=== PATIENT | male | born 1970 | race Two or more races ===

== ENCOUNTER → 2016-07-15 | Outpatient (CLI) | payer OTHER ==
--- NOTE | 2016-07-15 19:45 | REP ---
LEFT FOOT: REASON: Pain after trauma. COMPARISON: None. FINDINGS: The joint spaces are symmetric and relatively well maintained. There is no evidence of acute fracture or destructive osseous lesion. There is plantar calcaneal heel spur. IMPRESSION: Negative. Signed by Elliott Thomas DO 07/16/2016 12:18 P
== END ==
LOC: M LRY 18:03
PROVIDERS: ATTEND Nurse Practitioner Family
DX: M79.672 Pain in left foot (principal)

== ENCOUNTER → 2018-01-14 | Outpatient (CLI) | payer BC | LOC: M LRY 09:42 | DX: M79.672 Pain in left foot (principal) | CPT/HCPCS: 73630 ==

== ENCOUNTER 2018-04-11 21:07 | Emergency (ER) | payer BC ==
[~2018-04-11] VITALS: Ht 182.9 cm; Wt 97.3 kg
[2018-04-11 21:08] VITALS: BP 160/90
[2018-04-11] MEDS ORDERED: TRAM50TA2 PO (22:24)
[2018-04-11] MEDS ORDERED: NORCO 5/325MG TABLET (BULK FOR ED) PO ONE (22:30)
--- NOTE | 2018-04-12 03:53 | REP ---
Clinical: Left shoulder pain. Technique: Internal rotation, external rotation, and Y view of the left shoulder. Findings: Generalized mild age-related changes are appreciated including subtle cortical irregularity at the acromioclavicular joint. No acute fracture or dislocation. No overt osteoarthritic changes noted. Impression: Mild age-related changes. Electronically Signed by Kevin Hoover MD 04/12/2018 03:45 A
== END 2018-04-11 22:35 | disposition home or self-care (01) ==
LOC: M ED 21:07
DX: S46.012A Strain of muscle(s) and tendon(s) of the rotator cuff of left shoulder, initial encounter (principal); X50.9XXA Other and unspecified overexertion or strenuous movements or postures, initial encounter; Y92.018 Other place in single-family (private) house as the place of occurrence of the external cause

== ENCOUNTER → 2018-09-03 | Outpatient (CLI) | payer BC ==
[~2018-09-03] MED LIST: TRAM50TA2 PO
--- NOTE | 2018-09-03 11:05 | REP ---
Chest x-ray: Two views. History: Persistent cough for 3 weeks. Findings: The lungs are well inflated and clear. The pleural angles are sharp. Heart size is normal. Pulmonary vasculature is not increased. No significant bony abnormality is seen. Impression: No active disease. Electronically Signed by Hany Rivera MD 09/03/2018 10:56 A
== END ==
LOC: M LRY 10:37
PROVIDERS: ATTEND Physician Assistant
DX: R05 Cough (principal)

== ENCOUNTER → 2018-12-16 | Outpatient (REF) | payer BC ==
[2018-12-16 11:51] LABS: CHOLESTEROL RISK RATIO 4.415 (<5)
[2018-12-16 13:47] LABS: HEMOGLOBIN A1c 5.3 %
== END ==
LOC: M SFHCLERA 08:40
PROVIDERS: ATTEND Family Medicine
DX: Z00.00 Encounter for general adult medical examination without abnormal findings (principal)